=== PATIENT | male | born 1990 | race Caucasian/White ===

== ENCOUNTER 2019-10-21 05:04 | Emergency (ER) | payer BC, OTHER ==
[~2019-10-21] VITALS: Ht 188 cm; Wt 75.9 kg
[2019-10-21 05:04] VITALS: BP 129/66
[2019-10-21] MEDS ORDERED: IBUPROFEN 600 MG TAB PO ONE (06:30)
[2019-10-21] MEDS ORDERED: ACETAMINOPHEN 500 MG TAB PO ONE (06:30)
[2019-10-21] MEDS ORDERED: AUGM875T28 PO (06:52)
--- NOTE | 2019-10-21 07:24 | REP ---
Clinical: Pain with recent trauma. Technique: AP, open-mouth, and bilateral oblique views of the mandible. Findings: Mandible is intact. Temporomandibular joints are maintained. Overlying soft tissues are unremarkable. Impression: Normal mandibular radiographs. Electronically Signed by Bharath Horton MD 10/21/2019 07:16 A
== END 2019-10-21 07:44 | disposition home or self-care (01) ==
LOC: M ED 05:04
DX: H66.90 Otitis media, unspecified, unspecified ear (principal); K02.9 Dental caries, unspecified; F12.90 Cannabis use, unspecified, uncomplicated; F17.200 Nicotine dependence, unspecified, uncomplicated

== ENCOUNTER 2020-03-01 09:29 | Emergency (ER) | payer OTHER ==
[~2020-03-01] VITALS: Ht 188 cm; Wt 74.3 kg
[~2020-03-01 09:29] MED LIST: AUGM875T28 PO
[2020-03-01] MEDS ORDERED: MULTCAP PO (09:37)
[2020-03-01] MEDS ORDERED: BOOSTRIX/ADACEL VACCINE (DIPHTH/PERTUSS/ACELL/TETANUS) 0.5ML SYR IM ONE (10:00)
--- NOTE | 2020-03-01 10:19 | REP ---
Clinical: Trauma. Fall. Technique: AP and frog lateral views of the right femur. Findings: Osseous structures, joint spaces, and surrounding soft tissues are normal. No acute fracture or dislocation. No subcutaneous emphysema or foreign body. Impression: No acute fracture or dislocation. Electronically Signed by Bharath Horton MD 03/01/2020 10:10 A
--- NOTE | 2020-03-01 10:21 | REP ---
Clinical: Trauma. Technique: AP, lateral, bilateral oblique and sunrise views right knee . Findings: The osseous structures and joint spaces are intact and normal. There is no evidence for acute fracture or dislocation. No joint effusion is appreciated. Surrounding soft tissues are unremarkable. No subcutaneous emphysema or radiodense foreign body. Impression: No acute fracture or dislocation. Electronically Signed by Bharath Horton MD 03/01/2020 10:12 A
[2020-03-01] MEDS ORDERED: IBUPROFEN 800 MG TAB PO ONE (10:30)
[2020-03-01 10:40] VITALS: BP 114/61
== END 2020-03-01 10:48 | disposition home or self-care (01) ==
LOC: M ED 09:29
DX: S83.91XA Sprain of unspecified site of right knee, initial encounter (principal); S80.811A Abrasion, right lower leg, initial encounter; S80.812A Abrasion, left lower leg, initial encounter; W01.0XXA Fall on same level from slipping, tripping and stumbling without subsequent striking against object, initial encounter; Y92.832 Beach as the place of occurrence of the external cause; Y93.74 Activity, frisbee; F17.290 Nicotine dependence, other tobacco product, uncomplicated

== ENCOUNTER 2022-01-03 08:31 | Emergency (ER) | payer OTHER ==
[~2022-01-03] VITALS: Ht 182.9 cm; Wt 77.3 kg
[~2022-01-03 08:31] MED LIST changes: +MULTCAP PO
[2022-01-03 08:37] VITALS: BP 133/66
[2022-01-03] MEDS ORDERED: IBUP200T46 PO (08:39)
== END 2022-01-03 09:28 | disposition home or self-care (01) ==
LOC: M ED 08:31
DX: S63.92XA Sprain of unspecified part of left wrist and hand, initial encounter (principal); X58.XXXA Exposure to other specified factors, initial encounter; Y92.89 Other specified places as the place of occurrence of the external cause; Z77.098 Contact with and (suspected) exposure to other hazardous, chiefly nonmedicinal, chemicals

== ENCOUNTER 2022-09-07 08:55 | Emergency (ER) | payer OTHER ==
[~2022-09-07] VITALS: Ht 182.9 cm; Wt 79.5 kg
[2022-09-07] MEDS ORDERED: diphenhydrAMINE 25MG CAP PO ONE (10:15)
[2022-09-07 10:29] VITALS: BP 128/74
== END 2022-09-07 10:45 | disposition home or self-care (01) ==
LOC: M ED 08:55
DX: R21 Rash and other nonspecific skin eruption (principal); L51.9 Erythema multiforme, unspecified; B00.9 Herpesviral infection, unspecified; F17.200 Nicotine dependence, unspecified, uncomplicated

== ENCOUNTER → 2022-09-07 | Outpatient (REF) | payer OTHER ==
[~2022-09-07] MED LIST changes: +IBUP200T46 PO
== END ==
LOC: M SFHCDERM 18:19 → M LAB REF 18:19
PROVIDERS: ATTEND Dermatology
DX: R21 Rash and other nonspecific skin eruption (principal); L51.9 Erythema multiforme, unspecified